=== PATIENT | female | born 1995 | race Caucasian/White ===

== ENCOUNTER 2018-10-27 18:50 | Emergency (ER) | payer SELFPAY ==
[~2018-10-27] VITALS: Ht 180.3 cm; Wt 80.8 kg
--- NOTE | 2018-10-27 19:00 | NUR ---
PT BIB SELF. COMP OF HAVING A HEADACHE SINCE 5PM TODAY. NO SOB NOTED. NO LEFT/RIGHT SIDED WEAKNESS NOTED. NO ACUTE DISTRESS AT THIS TIME. PT ABLE TO COMMUNICATE NEEDS TO STAFF. AWAITING MD ANAND.
--- NOTE | 2018-10-27 19:10 | NUR ---
MD AT BEDSIDE. AWARE OF PT CONDITION.
[2018-10-27] MEDS ORDERED: diphenhydrAMINE HCL 50 MG/ML VIAL IV ONE (20:00)
[2018-10-27] MEDS ORDERED: PROCHLORPERAZINE EDISYLATE 10 MG/2 ML VIAL IV ONE (20:00)
[2018-10-27] MEDS ORDERED: IV NS 0.9% 1,000 ML BAG IV ONE (20:00)
[2018-10-27] MEDS ORDERED: KETOROLAC TROMETHAMINE INJ 30 MG/ML VIAL IV ONE (20:00)
[2018-10-27] MEDS ORDERED: KETOROLAC TROMETHAMINE INJ 30 MG/ML VIAL ONE (20:04)
[2018-10-27] MEDS ORDERED: diphenhydrAMINE HCL 50 MG/ML VIAL ONE (20:04)
[2018-10-27] MEDS ORDERED: PROCHLORPERAZINE EDISYLATE 10 MG/2 ML VIAL ONE (20:05)
--- NOTE | 2018-10-27 20:28 | NUR ---
Patient is resting comfortably in bed with eyes closed. Easily aroused. VSS
[2018-10-27 21:23] VITALS: BP 120/78
== END 2018-10-27 21:24 | disposition home or self-care (01) ==
LOC: ER 18:55
DX: G43.909 Migraine, unspecified, not intractable, without status migrainosus (principal)
CPT/HCPCS: 96374; 96375; 99283; A4606; J0780; J1200; J1885; J7030; Z7610